=== PATIENT | male | born 1965 | race Caucasian/White ===

== ENCOUNTER 2020-06-15 13:11 | Outpatient (CLI) | payer OTHER, SELFPAY ==
--- NOTE | 2020-06-15 13:28 | XR_ITS ---
WS: [id number] Left foot, 3 views, 06/15/2020 Clinical Data: LEFT TOE PAIN Comparison: Left fifth toe, 10/11/2010. Findings: No fractures or dislocations are seen. No bone destruction or erosion is noted. There is a bunion at the head of the left first metatarsal with osteoarthritic change between the head of the left first m etatarsal and base of the left first proximal phalanx. XR/XR foot LT min 3V* [id number] Impression: Bunion at the head of the left first metatarsal.
== END 2020-06-15 13:12 | disposition home or self-care (01) ==
LOC: RAD 13:19
PROVIDERS: Visit Provider Nurse Practitioner Family
DX: M79.675 Pain in left toe(s) (principal); M21.612 Bunion of left foot
CPT/HCPCS: 73630

== ENCOUNTER → 2020-08-15 13:54 | Outpatient (BNVA) | payer OTHER, SELFPAY | PROVIDERS: Visit Provider Podiatrist Foot & Ankle Surgery | DX: M79.672 Pain in left foot (principal) | CPT/HCPCS: 73630 ==

== ENCOUNTER → 2020-08-20 16:20 | Outpatient (BNVA) | payer OTHER, SELFPAY | PROVIDERS: Visit Provider Podiatrist Foot & Ankle Surgery | DX: Z01.818 Encounter for other preprocedural examination (principal); Z11.52 Encounter for screening for COVID-19 | CPT/HCPCS: 87635 ==

== ENCOUNTER 2020-08-24 08:05 | Day surgery (SDC) | payer OTHER, SELFPAY ==
[2020-08-23 09:57] VITALS: BMI 25.7
[2020-08-24] VITALS (9 sets, daily range): BP systolic 116–141; BP diastolic 76–93; PULSE 78–96; RESP 15–20; TEMP 36.2–36.6; O2SAT 95–97
--- NOTE | 2020-08-24 08:51 | P.ANESASSM_ITS ---
Pre-Anesthetic Assessment Pre-Anesthetic Assessment: Height/Weight: Height 1.63 m Weight 68.039 kg Temp Pulse Resp BP Pulse Ox 97.9 F 86 16 133/78 95 08/24/20 08:19 08/24/20 08:19 08/24/20 08:19 08/24/20 08:19 08/24/20 08:19 Preop Diagnosis: Left hallux rigidus Proposed Procedure: Operation Date: 08/24/20 10:20 Proposed Procedures p Cheilectomy with implant left foot gastrocnemius recession 88560 [id number] m20.22(Left) - Felice Geiger DPM s Gastrocnemius Recession(Left) - Felice Geiger DPM Was Beta Williams taken within 24 hours: N/A Was Clonidine taken within 24 hours: N/A Last intake: Intake Last Liquid Date 08/23/20 Last Liquid Time 23:55 Last Solid Date 08/23/20 Last Solid Time 18:00 Social: Social History: Tobacco (QUIT 1YR AGO) Exam: Pre-Anes Outpt Exam: alert, oriented x 3 and regular rate & rhythm Airway: Submandibular: WNL Cervical ROM: WNL MP: 2 Dentition: Full Pulmonary: Pulmonary: COPD Musc/skel: Musc/skel: OA/DJD Anesthetic Plan: ASA status: 2 Anesthesia: MAC Risk of > 500 ml blood loss (7ml/kg in children): No PFSH Anesthesia PFSH: Medical History (Updated 08/19/20 @ 17:25 by Felice Geiger DPM) Asthma Bone spur of foot Social History (Updated 08/15/20 @ 13:44 by Angelica Bradford MA) Smoking and tobacco status: former smoker Quit status (tobacco): has quit using tobacco Year quit tobacco: Over a year ago Second hand smoke exposure: No Smoking risk assessment/counseling performed?: No Alcohol intake: current Alcohol intake frequency: few times a week Alcohol type : beer Desire information about alcohol rehabilitation?: No Desire information about substance/drug rehabilitation?: No Counseling given: No Data Anesthesia Cardiac Studies: No Data to Display
[2020-08-24] MEDS: sodium chloride 0.9% 1,000 ML 30 ML IV (09:03)
--- NOTE | 2020-08-24 10:12 | W.PM.OPSUD ---
Surgery/Procedure H&P Update DATE OF PROCEDURE: August 24, 2020 DATE H&P PERFORMED: 08/14/20 H&P UPDATE INFORMATION: I have reviewed H&P completed within last 30 days, I have examined patient prior to procedure, No changes to prior documentation and H&P is in [facility] EMR on date indicated PREOP DIAGNOSIS: Left hallux rigidus PLANNED PROCEDURE: Operation Date: 08/24/20 10:20 Proposed Procedures p Cheilectomy with implant left foot gastrocnemius recession 05502 [id number] m20.22(Left) - Felice Geiger DPM s Gastrocnemius Recession(Left) - Felice Geiger DPM
[2020-08-24] MEDS: lidocaine 1% INJ 20 mL INJECTION (10:50)
--- NOTE | 2020-08-24 11:22 | SUR.PHASEI ---
PT AWAKE ALERT, TALKATIVE, VSS IV PATENT LT FOOT DRESSING D/I AND BOOT D/I
--- NOTE | 2020-08-24 11:41 | XR_ITS ---
WS: [id number] Exam: XR foot LT min 3V* [id number] Date/Time of Exam: 08/24/2020 11:41 AM Reason For Exam: post op Comparison 08/15/2020. Postoperative change of the distal first metatarsal noted. Small amounts of soft tissue air noted at the surgery site. No other postoperative changes are seen. XR/XR foot LT min 3V* [id number] IMPRESSION: 1. Postoperative changes of the distal first metatarsal and adjacent soft tissu es.
--- NOTE | 2020-08-24 11:42 | PM.OP ---
Operative Report Date of procedure: August 24, 2020 Pre-op Diagnosis: Left hallux rigidus Post-op diagnosis: same Post-op Findings: Osteophyte and osteochondral defect left first metatarsal phalangeal joint and first metatarsal head Procedure Done: Cheilectomy with implant left foot gastrocnemius recession CPT 24682 Implants: [employer] 10 mm x 10 mm interpositional spacer Pathology: none sent Surgeon: Felice Geiger D.P.M. Plant Nursery Worker: Peyton Anesthesia: MAC Estimated blood loss: 5 mL Tourniquet time: 28 Condition: stable Disposition: PACU Procedure: Under mild sedation the patient was brought to the operating room and placed on operating table in supine position. A timeout was performed. Anesthesia was then administered by the anesthesia service. Local anesthesia injected by myself consisting of one-to-one mixture 1% lidocaine and 1% Marcaine plain and a left Huffman block fashion. Well-padded pneumatic tourniquet applied to the left ankle. Left lower extremity was scrubbed, prepped and draped utilizing normal aseptic technique. Left foot was then examined a weighted with an Esmarch bandage and a tourniquet inflated to 250 mmHg. Attention was directed to the left first metatarsophalangeal joint where a linear longitudinal incision was made medial and parallel to the extensor houses longus tendon. Incision was performed with a #15 blade through skin and blunt and sharp dissection carried down through subcutaneous tissue to the layer of the joint capsule utilizing sharp and blunt technique. Care was taken to retract and preserve neurovascular and tendinous structures. Bleeders were ligated and cauterized as necessary. The extensor houses longus tendon was retracted laterally and a periosteal and capsular incision was made in a linear fashion with a fresh 15 blade. The head of the first metatarsal and base of the proximal phalanx were freed from the soft tissue and capsular attachments. There was significant osteophyte formation and loose chondral bodies at the dorsal aspect as well as the medial and lateral aspect of the first metatarsal head and a osteophyte at the base of the proximal phalanx these were transected restoring normal curvature and anatomy to the first metatarsal head and base of the proximal phalanx utilizing a bone rongeur. All rough edges were smoothed with a power bur. Centrally at the left first metatarsal head a 5 x 6 mm osteochondral defect was appreciated. Utilizing standard technique and manufacture recommendations a 10 mm x 10 mm polyvinylalcohol implant was inserted as a interpositional spacer. Significant increase in range of motion of the first metatarsophalangeal joint was appreciated preoperatively it was less than 20 degrees, intraoperatively I was able to observe greater than 55 degrees of dorsiflexion that was smooth without crepitus or bony catching. Incision site was flushed with copious amounts of sterile saline solution. Capsular structure closed utilizing 3-0 Vicryl, subcutaneous tissue closed in a layered fashion utilizing 4-0 Vicryl and skin closed utilizing 4-0 nylon in a running interlocking fashion. The incision site was dressed with Adaptic, sterile 4 x 4, Kerlix and Sunny wrap. Cam boot was then applied. Tourniquet was deflated and a prompt hyperemic response was noted to the distal digits of the left foot. Patient tolerated the procedure and anesthesia well and was transferred to the PACU with vital signs stable and vascular status intact. Following a period of postoperative monitoring he will be discharged home has been given at home care instructions and follow-up on discharge paperwork. He was prescribed hydrocodone to be taken judiciously as needed for pain sent electronically to the pharmacy of choice. Was also provided my cell phone numbers to contact me with any postoperative questions or concerns.
--- NOTE | 2020-08-24 14:24 | ANE.PACU2 ---
Inpatient post-anesthesia follow up: Airway intact: Yes Vital signs: Temperature 97.6 F Pulse Rate 96 Respiratory Rate 18 Blood Pressure 141/93 Pulse Oximetry 96 Oxygen Delivery Me thod Room Air Oxygen Flow Rate Fraction of Inspir ed Oxygen Hydration adequate: Yes Nausea and vomiting: No Pain level: 1 Mental status: Baseline
== END 2020-08-24 12:25 | disposition home or self-care (01) ==
PROVIDERS: Visit Provider Podiatrist Foot & Ankle Surgery
PROC: (CPT 28289; principal; 2020-08-24 10:20)
PROC: (CPT 27687; 2020-08-24 10:20)
DX: M20.22 Hallux rigidus, left foot (principal); Z87.891 Personal history of nicotine dependence; J44.9 Chronic obstructive pulmonary disease, unspecified; M19.90 Unspecified osteoarthritis, unspecified site
CPT/HCPCS: 27687; 28291; 73630; 96365; C1713; J0690; J2250; J2704; J3010; J3490; J7030

== ENCOUNTER → 2020-09-05 09:30 | Outpatient (BNVA) | payer OTHER, SELFPAY | PROVIDERS: Visit Provider Podiatrist Foot & Ankle Surgery | DX: M19.072 Primary osteoarthritis, left ankle and foot (principal); M20.22 Hallux rigidus, left foot | CPT/HCPCS: 73630 ==

== ENCOUNTER → 2021-07-01 14:02 | Outpatient (BNVA) | payer OTHER, SELFPAY | PROVIDERS: PCP Nurse Practitioner Family; Visit Provider Podiatrist Foot & Ankle Surgery | DX: Z98.890 Other specified postprocedural states (principal) | CPT/HCPCS: 73630 ==

== ENCOUNTER → 2022-03-11 08:59 | Outpatient (BNVA) | payer OTHER, SELFPAY | PROVIDERS: PCP Nurse Practitioner Family; Visit Provider Podiatrist Foot & Ankle Surgery | DX: M20.22 Hallux rigidus, left foot (principal) | CPT/HCPCS: 73630 ==

== ENCOUNTER 2022-03-14 09:24 | Day surgery (SDC) | payer OTHER, SELFPAY ==
[2022-03-13 10:07] VITALS: BMI 26.4
[2022-03-14] VITALS (10 sets, daily range): BP systolic 90–113; BP diastolic 52–78; PULSE 80–101; RESP 16–18; TEMP 36.3–36.8; O2SAT 94–100
[2022-03-14] MEDS: CELEcoxib 200 mg Capsule 400 MG PO (10:00)
[2022-03-14] MEDS: gabapentin 300 mg Capsule PO (10:01)
[2022-03-14] MEDS: sodium chloride 0.9% 1,000 ML 30 ML IV (10:08)
--- NOTE | 2022-03-14 11:51 | W.PM.OPSUD ---
Surgery/Procedure H&P Update DATE OF PROCEDURE: March 14, 2022 DATE H&P PERFORMED: 03/11/21 CHANGES TO PREVIOUS DOCUMENTATION: none PREOP DIAGNOSIS: Left hallux rigidus PLANNED PROCEDURE: Operation Date: 03/14/22 11:05 Proposed Procedures p Left first metatarsal phalangeal joint fusion 85568,M20.22(Left) - Felice Geiger DPM
[2022-03-14] MEDS: ceFAZolin 2,000 MG in sodium chloride 0.9% (plus) 50 ML 100 MG IV (12:04)
--- NOTE | 2022-03-14 13:13 | XR_ITS ---
WS: [id number] Left foot, 3 views, 03/14/2022 Clinical Data: post op Comparison: Left foot, 03/11/2022 Findings: There is a fusion of the left first MTP joint with a dorsal plate and multiple orthopedic screws. The remainder the foot shows no change. There is a cast surrounding the left foot. XR/XR foot LT min 3V* [id number] Impression: Fusion of the left first MTP joint.
--- NOTE | 2022-03-14 14:06 | P.OP_ITS ---
Operative Report Date of procedure: March 14, 2022 Pre-op diagnosis: Preop Diagnosis Left hallux rigidus Post-op diagnosis: Left hallux rigidus Procedure done: Left first metatarsal phalangeal joint fusion. CPT code 32943 Implants: [place] 5 degree primary MTP arthrodesis plate, [place] 2.7 mm locking screws, [place] 3.5 mm locking and nonlocking screw, 3-0 Vicryl, 4-0 Vicryl, 4-0 nylon Surgeon: Felice Geiger D.P.M. Senior It Business Analyst: See intraoperative documentation Estimated blood loss: 5 See intraoperative documentation IV fluids: None Urine output: 0 Complications: None Brief History: Repeat x-rays taken and reviewed left foot 3 views weightbearing.? Further joint space narrowing, recurrence of osteophyte more prominent at the dorsal aspect of the left proximal phalanx.? There is also recurrence of osteophyte dorsally at the first metatarsal head.? Patient having increased pain and swelling with activity localized at the left first metatarsophalangeal joint.? Discussed utility of joint replacement versus arthrodesis.? For long-term purposes as the patient is only 57 and has had a brisk recurrence of arthrosis and osteophytes as well as symptoms at the left first metatarsal bone joint would lean towards arthrodesis as a more definitive option.? I reviewed at length with the patient, the risks, potential complications, benefits, alternatives, expectations, and typical outcomes associated with the surgery. The risks and potential complications were explained in detail, including but not limited to infection, wound dehiscence or soft tissue complications, bleeding and hematoma, chronic edema, neuritis or nerve damage producing numbness or chronic pain, CRPS, failure to relieve pain or worsening pain, thick / painful / unsightly scar, limited motion / stiffness, malposition, delayed union, malunion, or nonunion, fracture, reaction to implants, anesthetic complications, venous thromboembolism, and deformity recurrence.? I discussed the notion of no regrets with the patient as it pertains to complications and outcomes. The patient seemed to understand the nature of the proposed care and required convalescence. They asked appropriate questions, answered to their satisfaction. They are aware no guarantees can be made as to a satisfactory outcome and they understand there may be other possible unforeseen complications or outcomes not listed here that will be treated accordingly if they arise. There were no writte n or implied guarantees given to the patient. They gave informed consent to proceed. Procedure: Under mild sedation the patient was brought to the operating room and remained on the gurney in supine position. A timeout was performed. Anesthesia was then administered by the anesthesia service. Local anesthesia was injected by myself consisting of 20 cc of 0.25% Marcaine plain in a left Huffman block fashion. 10 cc of Exparel infiltrated subcutaneously dorsally and plantarly to the left first ray. Well-padded pneumatic tourniquet was applied to the left ankle. The left lower extremity was then scrubbed, prepped and draped utilizing normal aseptic technique. Left foot was exanguinated with an Esmarch bandage and the tourniquet inflated to 250 mmHg at the left ankle. Attention was directed to the previous cicatrix of the left first metatarsal phalangeal joint where a new incision was performed through the previous incision this was medial and parallel to the extensor houses longus tendon. Dissection was carried down to the layer of joint capsule utilizing blunt and sharp technique. Care was taken to retract and preserve neurovascular and tendinous structures. All bleeders were ligated and cauterized as necessary. Capsular incision was performed and the head of the first metatarsal was released of its capsular and soft tissue attachments as well as the base of the proximal phalanx. McGlamry elevator utilized to free up sesamoids and plantar capsule. Interpositional implant within the first metatarsal head centrally was removed and passed from operative field. The incision was flushed with saline solution followed by preparation for arthrodesis of the head of the first metatarsal and base of the proximal phalanx utilizing cone and cup reamers by hand to denude articular surface down through subchondral plate. Irrigation was performed. Fenestrating drill bit utilized to perform subchondral drilling of the head of the first metatarsal and base of the proximal phalanx. Positioning of the first metatarsal plantar joint in slight valgus, slight dorsiflexion and neutral in the frontal plane with toenail facing dorsal temporary fixation was performed followed by locking compression plate dorsally at the first metatarsal phalangeal joint arthrodesis site utilizing [place] 5 degree locking plate, distal cluster of 3 screws were fixated utilizing 2.7 millimeter screws, compression slot was then utilized for compression at the arthrodesis site which was noted to be excellent. Proximal screws in the first metatarsal head were 3.5 mm [place] screws. Excellent bony apposition and compression noted. Confirmation of placement of hardware noted to be excellent all 3 planes as well as position of the hallux and position of the first metatarsal phalangeal arthrodesis site noted to be optimal in the AP, oblique and lateral views. The incision was irrigated with copious amounts of sterile skin solution and closed in a layered fashion. Capsule reapproximated with 3-0 Vicryl. Subcutaneous tissue reapproximated 4-0 Vicryl and skin with 4-0 nylon. The incision was dressed with Adaptic, sterile 4 x 4, Kerlix and Sunny wrap. Cam boot was applied to the left lower extremity. Tourniquet was deflated and a prompt hyperemic response was noted to the distal digits of the left foot. Patient tolerated the procedure and anesthesia well and was transferred to the PACU with vital signs stable and vascular status intact. Following a period of postoperative monitoring he will be discharged home is to be nonweightbearing to the left foot. May heel touch for transfers. He was given at home care instructions, pain medication, advised 81 mg aspirin to help potentially reduce the risk of deep vein thrombosis. He was provided my cell phone number to contact with any postoperative questions or concerns.
--- NOTE | 2022-03-14 14:42 | ANE.PACU2 ---
Inpatient post-anesthesia follow up: Airway intact: Yes Vital signs: Temperature 97.8 F Pulse Rate 88 Respiratory Rate 18 Blood Pressure 100/72 Pulse Oximetry 95 Oxygen Delivery Me thod Room Air Oxygen Flow Rate Fraction of Inspir ed Oxygen Hydration adequate: Yes Nausea and vomiting: No Pain level: 2 Mental status: Baseline
== END 2022-03-14 14:45 | disposition home or self-care (01) ==
PROVIDERS: PCP Nurse Practitioner Family; Visit Provider Podiatrist Foot & Ankle Surgery
PROC: (CPT 28750; principal; 2022-03-14 10:55)
DX: M20.22 Hallux rigidus, left foot (principal)
CPT/HCPCS: 28750; 73630; 76000; C1713; C9290; J0690; J2250; J2704; J3010; J3490; J7030

== ENCOUNTER → 2022-03-27 14:42 | Outpatient (BNVA) | payer OTHER, SELFPAY | PROVIDERS: PCP Nurse Practitioner Family; Visit Provider Podiatrist Foot & Ankle Surgery | DX: Z98.890 Other specified postprocedural states (principal) | CPT/HCPCS: 73630 ==

== ENCOUNTER → 2022-04-10 13:47 | Outpatient (BNVA) | payer OTHER, SELFPAY | PROVIDERS: PCP Nurse Practitioner Family; Visit Provider Podiatrist Foot & Ankle Surgery | DX: Z98.890 Other specified postprocedural states (principal) | CPT/HCPCS: 73630 ==

== ENCOUNTER → 2022-04-24 13:57 | Outpatient (BNVA) | payer OTHER, SELFPAY | PROVIDERS: PCP Nurse Practitioner Family; Visit Provider Podiatrist Foot & Ankle Surgery | DX: Z98.890 Other specified postprocedural states (principal) | CPT/HCPCS: 73630 ==

== ENCOUNTER 2022-04-29 09:29 | Outpatient (CLI) | payer OTHER, SELFPAY ==
--- NOTE | 2022-04-29 09:36 | CT_ITS ---
WS: [id number] LDCT LUNG CANCER SCREENING TECHNIQUE: Noncontrast CT of the chest with coronal and sagittal reformatted images. CLINICAL INFORMATION: FORMER SMOKER-QUIT 2019 COMPARISON: None. DLP: 79.79 mGy.cm DIvol: Mean CTDIvol: 1.60 (mGy) All CT scans at [facility] use at least one of these dose optimization techniques: automat ed exposure control; mA and/or kV adjustment per patient size (includes targeted exams where dose is matched to clinical indication); or iterative reconstruction. FINDINGS:Lungs well aerated. No acute pulmonary infiltrates. 6 mm nodule or lymph node along the RIGH T upper lobe bronchus. No other suspicious parenchymal normalities. Aortic calcification. Coronary calcification. No mediastinal or hilar lymphadenopathy. A few prominen t axillary lymph nodes with fatty hilum. Normal caliber thoracic aorta. No mediastinal or hilar lymph adenopathy. Adrenal glands are normal. Normal GE junction. Noncontrast spleen is normal. CT/CT lung screening [id number] IMPRESSION: LUNG-RADS: 3-Probably Benign FOLLOW UP: 6 Month LDCT
== END 2022-04-29 09:30 | disposition home or self-care (01) ==
LOC: RAD 09:30
PROVIDERS: PCP Nurse Practitioner Family; Visit Provider Family Medicine
DX: Z12.2 Encounter for screening for malignant neoplasm of respiratory organs (principal); Z87.891 Personal history of nicotine dependence
CPT/HCPCS: 71271

== ENCOUNTER → 2022-05-08 13:55 | Outpatient (BNVA) | payer OTHER, SELFPAY | PROVIDERS: PCP Nurse Practitioner Family; Visit Provider Podiatrist Foot & Ankle Surgery | DX: Z98.890 Other specified postprocedural states (principal); M20.22 Hallux rigidus, left foot | CPT/HCPCS: 73630 ==

== ENCOUNTER → 2022-05-26 09:44 | Outpatient (BNVA) | payer OTHER, SELFPAY | PROVIDERS: PCP Nurse Practitioner Family; Visit Provider Podiatrist Foot & Ankle Surgery | DX: Z98.890 Other specified postprocedural states (principal) | CPT/HCPCS: 73630 ==

== ENCOUNTER → 2022-06-18 10:30 | Outpatient (BNVA) | payer OTHER, SELFPAY | PROVIDERS: PCP Nurse Practitioner Family; Visit Provider Podiatrist Foot & Ankle Surgery | DX: Z98.890 Other specified postprocedural states (principal); M79.672 Pain in left foot | CPT/HCPCS: 73630 ==

== ENCOUNTER 2022-08-06 07:20 | Outpatient (CLI) | payer OTHER, SELFPAY ==
--- NOTE | 2022-08-06 07:34 | US_ITS ---
WS: [id number] ULTRASOUND SOFT TISSUES RIGHT neck. HISTORY: CERVICAL LYMPHADENOPATHY COMPARISON: None available. TECHNIQUE: 2-D and color Doppler imaging is submitted. Bilateral cervical chain measure by ultrasound. There are several lymph nodes along the cervical vivek ns. Majority of these lymph nodes are normal. There is a mildly prominent cervical chain lymph node m easuring 8 x 9 x 13 mm with slight displacement of the fatty hilum. The size of the lymph node is nor mal. The number is not significantly increased. There is a similar lymph node along the LEFT cervical chain with slight displacement of the fatty hilum this lymph node measures 14 x 9 x 20 mm. US/US soft tissue/extremity [id number] IMPRESSION: 1. Very minimally abnormal lymph nodes along the cervical chains as described above. The size of the lymph nodes is normal but there is slight displacement o f the fatty hilum. No hyperemia. Differential would include mild reactive lymph adenopathy from an infectious or inflammatory process. Early neoplastic process is not excluded. 2. Short-term ultrasound follow-up after treatment for possible infection can be obtained. For additional evaluation contrast enhanced neck CT would provide additional information.
== END 2022-08-06 07:21 | disposition home or self-care (01) ==
PROVIDERS: PCP Nurse Practitioner Family; Visit Provider Family Medicine
DX: R59.0 Localized enlarged lymph nodes (principal)
CPT/HCPCS: 76882

== ENCOUNTER → 2023-04-21 13:17 | Outpatient (BNVA) | payer OTHER, SELFPAY | PROVIDERS: PCP Nurse Practitioner Family; Visit Provider Podiatrist Foot & Ankle Surgery | DX: M79.672 Pain in left foot (principal); Z98.890 Other specified postprocedural states; M25.872 Other specified joint disorders, left ankle and foot | CPT/HCPCS: 73630 ==

== ENCOUNTER 2023-09-09 11:23 | Emergency (ER) | payer OTHER, SELFPAY ==
[2023-09-09 11:29] VITALS: BP 132/73; PULSE 102; TEMP 36.9; O2SAT 95; BMI 26.1
--- NOTE | 2023-09-09 13:11 | XR_ITS ---
WS: [id number] XR foot LT min 3V* [id number] REASON FOR EXAM: injury FINDINGS: Previous plate and screw arthrodesis of the first MTP joint. No acute fracture identified. Joint spaces of the left foot are intact and relatively well preserved. The joint spaces in the midfoot are intact and relatively well preserved. Joint spaces of the hindfoot are intact and relatively well preserved. No soft tissue abnormality. The left foot appears unchanged compared to 04/21/2023. XR/XR foot LT min 3V* [id number] IMPRESSION: Stable postoperative left foot without acute abnormality.
--- NOTE | 2023-09-09 13:11 | XR_ITS ---
WS: [id number] XR foot RT min 3V* [id number] REASON FOR EXAM: injury FINDINGS: No acute fracture. Joint spaces of the forefoot, hindfoot, and midfoot are intact and relatively well preserved. No soft tissue abnormality. XR/XR foot RT min 3V* [id number] IMPRESSION: No acute abnormality.
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
--- NOTE | 2023-09-10 09:58 | DCPLANNER ---
messaged podiatry for er f/u
== END 2023-09-09 14:21 | disposition home or self-care (01) ==
PROVIDERS: Emergency Provider Nurse Practitioner Family; PCP Nurse Practitioner Family
DX: S92.352A Displaced fracture of fifth metatarsal bone, left foot, initial encounter for closed fracture (principal); Z87.891 Personal history of nicotine dependence; W16.622A Jumping or diving into natural body of water striking bottom causing other injury, initial encounter
CPT/HCPCS: 73630; 99283; E0114

== ENCOUNTER → 2024-04-13 08:52 | Outpatient (BNVA) | payer OTHER, SELFPAY | PROVIDERS: PCP Nurse Practitioner Family; Visit Provider Family Medicine Adult Medicine | DX: J02.9 Acute pharyngitis, unspecified (principal); B34.9 Viral infection, unspecified | CPT/HCPCS: 87880 ==

== ENCOUNTER 2024-06-01 09:53 | Outpatient (CLI) | payer OTHER, SELFPAY ==
--- NOTE | 2024-06-01 09:57 | CT_ITS ---
WS: [id number] LDCT LUNG CANCER SCREENING TECHNIQUE: Noncontrast CT of the chest with coronal and sagittal reformatted images. CLINICAL INFORMATION: HS OF TOBACCO USE COMPARISON: 2022 DLP: 63.38 mGy.cm DIvol: Mean CTDIvol: 1.10 (mGy) All CT scans at [facility] use at least one of these dose optimization techniques: automated exposure control; mA and/or kV adjustment per patient size (includes targeted exams where dose is matched to clinical indication); or iterative reconstruction. FINDINGS: 6 mm nodule along the RIGHT upper lobe bronchus is unchanged. No other suspicious parenchymal normalities. 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 Aortic calcification. Coronary calcification. No mediastinal or hilar lymphadenopathy. A few prominent axillary lymph nodes with fatty hilum. Normal caliber thoracic aorta. No mediastinal or hi lar lymphadenopathy. Adrenal glands are normal. Normal GE junction. Noncontrast spleen is normal. CT/CT lung screening [id number] IMPRESSION: LUNG-RADS: 2-Benign Appearance or Behavior FOLLOW UP: 12 Month: Continue annual screening with LDCT
== END 2024-06-01 09:54 | disposition home or self-care (01) ==
PROVIDERS: PCP Nurse Practitioner Family; Visit Provider Family Medicine
DX: Z12.2 Encounter for screening for malignant neoplasm of respiratory organs (principal); Z87.891 Personal history of nicotine dependence; R91.1 Solitary pulmonary nodule; J84.10 Pulmonary fibrosis, unspecified; I70.0 Atherosclerosis of aorta; I25.10 Atherosclerotic heart disease of native coronary artery without angina pectoris; R59.0 Localized enlarged lymph nodes
CPT/HCPCS: 71271